=== PATIENT | female | born 1995 | race Two or more races ===

== ENCOUNTER 2021-07-17 12:41 | Outpatient (CLI) | payer OTHER ==
[2021-07-17] MEDS ORDERED: PRENATAL CAPLE1 EAC1 PO (13:42)
== END 2021-07-18 08:29 | disposition home or self-care (01) ==
LOC: OBS/DEL 12:41
PROVIDERS: ATTEND Specialist
DX: O26.849 Uterine size-date discrepancy, unspecified trimester (principal); O26.859 Spotting complicating pregnancy, unspecified trimester; O99.210 Obesity complicating pregnancy, unspecified trimester

== ENCOUNTER 2021-08-01 15:56 | Outpatient (CLI) | payer OTHER ==
[~2021-08-01 15:56] MED LIST: PRENATAL CAPLE1 EAC1 PO
== END 2021-08-01 16:54 | disposition home or self-care (01) ==
LOC: PRENATAL 15:56
PROVIDERS: ATTEND Obstetrics & Gynecology Maternal & Fetal Medicine
DX: O35.0XX0 Maternal care for (suspected) central nervous system malformation in fetus, not applicable or unspecified (principal); O35.3XX0 Maternal care for (suspected) damage to fetus from viral disease in mother, not applicable or unspecified; O09.219 Supervision of pregnancy with history of pre-term labor, unspecified trimester; O99.210 Obesity complicating pregnancy, unspecified trimester; Z3A.24 24 weeks gestation of pregnancy

== ENCOUNTER 2021-09-21 13:22 | Outpatient (CLI) | payer OTHER | END 2021-09-21 13:38 | disposition home or self-care (01) | LOC: NST 13:22 | PROVIDERS: ATTEND Specialist | DX: Z34.83 Encounter for supervision of other normal pregnancy, third trimester (principal) ==

== ENCOUNTER 2021-09-21 13:54 | Outpatient (CLI) | payer OTHER | END 2021-09-21 14:57 | disposition home or self-care (01) | LOC: PRENATAL 13:54 | PROVIDERS: ATTEND Obstetrics & Gynecology Maternal & Fetal Medicine | DX: O26.849 Uterine size-date discrepancy, unspecified trimester (principal); O35.0XX0 Maternal care for (suspected) central nervous system malformation in fetus, not applicable or unspecified; O36.8199 Decreased fetal movements, unspecified trimester, other fetus; O99.210 Obesity complicating pregnancy, unspecified trimester; Z3A.32 32 weeks gestation of pregnancy ==

== ENCOUNTER 2021-10-25 14:24 | Outpatient (CLI) | payer OTHER | END 2021-10-25 18:02 | disposition home or self-care (01) | LOC: OBS/DEL 14:24 | PROVIDERS: ATTEND Specialist | DX: O47.1 False labor at or after 37 completed weeks of gestation (principal); Z3A.38 38 weeks gestation of pregnancy ==

== ENCOUNTER 2021-11-08 13:15 | Inpatient (IN) | payer OTHER ==
[~2021-11-08] VITALS: Ht 162.6 cm; Wt 122.5 kg
[2021-11-16] MEDS ORDERED: PRENATAL CAPLE1 EAC1 PO (04:57)
[2021-11-18] MEDS ORDERED: HYDROCORTISO453.6 G1 RECTAL (09:33)
[2021-11-18] MEDS ORDERED: FERREX 150 FOR1 EACH PO (09:33)
== END 2021-11-18 15:38 | disposition home or self-care (01) | DRG 807 ==
LOC: LDR 11-15 13:15 → OB/GYN 11-16 04:19 → LDR 11-16 04:19 → OB/GYN 11-16 15:46
PROVIDERS: ADMIT Specialist; ATTEND Specialist
PROC: 4A1HXCZ Monitoring of Products of Conception, Cardiac Rate, External Approach (ICD-10-PCS; 2021-11-16)
PROC: 10E0XZZ Delivery of Products of Conception, External Approach (ICD-10-PCS; principal; 2021-11-17)
PROC: 0KQM0ZZ Repair Perineum Muscle, Open Approach (ICD-10-PCS; 2021-11-17)
DX: O70.1 Second degree perineal laceration during delivery (principal); Z37.0 Single live birth; Z3A.40 40 weeks gestation of pregnancy; Z20.822 Contact with and (suspected) exposure to COVID-19